=== PATIENT | female | born 1985 | race Caucasian/White ===

== ENCOUNTER 2020-05-29 08:49 | Emergency (ER) | payer MEDICARE, SELFPAY ==
--- NOTE | 2020-05-29 09:05 | ED.GENADULT ---
HPI - General Adult General Chief complaint: Extremity Problem,Nontraumatic Stated complaint: left ankle pain Time Seen by Provider: 05/29/20 09:11 Source: patient Mode of arrival: ambulatory Limitations: no limitations History of Present Illness HPI narrative: 35-year-old female patient presents to the [facility] with complaints of left ankle pain that started yesterday. Patient states that she has had surgery on the ankle about 2 years ago due to an injury. Patient states she does have some plates and screws in there. Patient states that the pain started yesterday. Denies any new injury. Patient states that this morning the swelling continues and states that it does hurt to try and put weight on it. Patient denies taking anything for pain. Denies elevating it or icing it. Related Data Home Medications Medication Instructions Recorded Confirmed alprazolam 0.5 mg TID PRN 05/29/20 05/29/20 Allergies Allergy/AdvReac Type Severity Reaction Status Date / Time latex Allergy Unknown Hives / Verified 05/29/20 09:00 Red Face lorazepam AdvReac Intermediate HALLUCINATI Verified 05/29/20 09:00 ONS cyclobenzaprine AdvReac Unknown knocks me Verified 05/29/20 09:00 out and I hallucinate rubbing alcohol Allergy Severe skin turns Uncoded 05/29/20 09:00 red Review of Systems Review of Systems: Narrative: CONSTITUTIONAL: Denies fever, chills, or sweats. EYES: Denies visual changes, redness, or discharge. ENT: Denies rhinorrhea, congestion, sore throat, or otalgia. CARDIOVASCULAR: Denies chest pain, palpitations, or edema. RESPIRATORY: Denies cough or dyspnea. GASTROINTESTINAL: Denies abdominal pain, nausea, vomiting, or diarrhea. GENITOURINARY: Denies dysuria or hematuria. SKIN: Denies rash or itching. MUSCULOSKELETAL: Denies back pain, joint pain, or myalgia. Positive left ankle pain NEUROLOGIC: Denies headache, numbness, or weakness. PSYCHIATRIC: Denies anxiety or depression. [facility] Social History Social History Gender identity (if verbalized by the patient): Female Comments At the time of my signature I agree with nursing past medical history, surgical, social, and family history. There is no relevant family history pertinent to the presenting complaint. Exam Narrative: Exam Narrative: GENERAL: Well-appearing, well-nourished, and in no acute distress. HEAD: Normocephalic, atraumatic. EYES: PERRLA and EOMI. ENT: Nares clear, no rhinorrhea or epistaxis. Mucous membranes moist. NECK: Supple. No lymphadenopathy CHEST: Clear to auscultation. No respiratory distress. HEART: Regular rate and rhythm. No murmur heard. Normal peripheral pulses. ABDOMEN: Soft, nontender, nondistended, normal active bowel sounds. EXTREMITIES: Patient is able to bear weight and ambulate but complains of increase in pain to the left ankle. The L ankle is without obvious asymmetry or deformity when compared to the R ankle. Patient can flex/extend, invert/noemy. No obvious surface trauma, ecchymosis, there is some soft tissue swelling noted to the left ankle as compared to the right. No body tenderness to palpation over the medial or lateral malleolus. Anterior talofibular ligament, posterior talofibular ligament, calcaneofibular ligament nontender and without swelling. No tenderness or deformity of the midfootor over the proximal fifth metatarsal. Good DP and posterior tibial pulses and sensation to light touch normal. Talar tilt test is negative for ligament laxity to valgus or vargus stress. Negative anterior draw. Peroneal nerve is intact with strong eversion and plantar flexion. SKIN: Warm, dry, no rash. NEURO: No focal deficits. Alert and oriented x3. Course Vital Signs Vital signs: Vital signs reviewed. Medical Decision Making Differential Diagnosis Differential Diagnosis: Differential diagnosis: Foot fracture, crush injury, compartment syndrome, contusion, sprain, ten
[2020-05-29 09:08] VITALS: BP 127/82; PULSE 116; RESP 16; TEMP 36.3; O2SAT 100
== END 2020-05-29 09:24 | disposition home or self-care (01) ==
PROVIDERS: Emergency Provider Nurse Practitioner Family
DX: M19.072 Primary osteoarthritis, left ankle and foot (principal)
CPT/HCPCS: 99212; G0463